=== PATIENT | female | born 1960 | race Caucasian/White ===

== ENCOUNTER 2019-08-25 09:16 | Emergency (ER) | payer MEDICAID ==
[~2019-08-25] VITALS: Ht 165.1 cm; Wt 136.1 kg
[~2019-08-25 09:16] MED LIST: LEVO0.2T5 PO; LISI10TA11 PO; ORE25 PO; QUET100T PO; SYNTHROID
--- NOTE | 2019-08-25 09:20 | NUR ---
Patient ambulated to bed 11. RN evaluating patient at bedside.
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
[2019-08-25 09:25] VITALS: BP 165/96
[2019-08-25 09:46] VITALS: BP 165/96
--- NOTE | 2019-08-25 09:46 | NUR ---
Patient discharged. Written and verbal after care instructions given and explained REGARDING DEPRESSION. Patient alert, oriented and verbalized understanding of instructions. Ambulatory with steady gait. All questions addressed prior to discharge. ID band removed. Patient advised to follow up with PMD. Rx of SEROQUEL, LEVOTHYROXINE, LISINOPRIL, AND NAPROSYN given. Patient educated on indication of medication including possible reaction and side effects. Opportunity to ask questions provided and answered. PT INSTRUCTED TOT YASMIN NAPROSYN WITH A MEAL AND TO TAKE LEVOTHYROXINE IN THE MORNING BEFORE A MEAL. PT GIVEN MENTAL HEALTH RESOURCE PACKET
== END 2019-08-25 09:46 | disposition home or self-care (01) ==
LOC: MED 09:16
DX: F32.9 Major depressive disorder, single episode, unspecified (principal); E03.9 Hypothyroidism, unspecified; I10 Essential (primary) hypertension; M19.90 Unspecified osteoarthritis, unspecified site; J44.9 Chronic obstructive pulmonary disease, unspecified; F17.210 Nicotine dependence, cigarettes, uncomplicated; Z71.6 Tobacco abuse counseling; Z98.890 Other specified postprocedural states; Z79.899 Other long term (current) drug therapy; Z88.0 Allergy status to penicillin

== ENCOUNTER 2019-10-30 11:16 | Observation (INO) | payer MEDICAID, OTHER ==
[~2019-10-30] VITALS: Ht 165.1 cm; Wt 136.1 kg
[2019-10-30 11:24] VITALS: BP 157/94
--- NOTE | 2019-10-30 11:24 | NUR ---
Patient ambulated to bed 10. RN evaluating patient at bedside.
[2019-10-30] MEDS ORDERED: ALBUTEROL SULFATE/IPRATROPIU 3 ML SOL IH ONE ×2 (11:30→13:10)
--- NOTE | 2019-10-30 11:30 | NUR ---
Breathing treatment administered by respiratory therapist at bedside.
--- NOTE | 2019-10-30 11:30 | NUR ---
59 Y/O FEMALE C/O SOB AND COUGH X 3 DAYS. STATES NONPRODUCTIVE, MOIST COUGH. STATES 8/10 CHEST PAIN PROVOKED BY COUGH THAT RADIATES TO BACK. RR SHALLOW AND EVEN. EXPIRATORY WHEEZES HEARD AT BILATERAL BASES. PT PLACED ON MONITOR, SITTING UPRIGHT FOR COMFORT. VSS MEDHX: DM, HTN, HYPOTHYROIDISM ALLERGIES: PENICILLIN
--- NOTE | 2019-10-30 11:33 | NUR ---
Dr. Pablo is evaluating the patient at bedside.
--- NOTE | 2019-10-30 11:34 | NUR ---
HHN THERAPY AND RESPIRATORY DRUG GIVEN ORDERED ENCOURAGED PATIENT FOR INTERMITTENT DEEP BREATHING DURING THERAPY
--- NOTE | 2019-10-30 11:49 | NUR ---
Dr. Pablo is evaluating the patient at bedside.
--- NOTE | 2019-10-30 11:57 | NUR ---
LAB AT BEDSIDE.
--- NOTE | 2019-10-30 12:04 | NUR ---
PT PLACED ON 2L NC. O2 SAT 88%RA. 93% ON 2L
[2019-10-30 12:37] LABS: BASOPHILS # (AUTO) 0.1 K/uL (0.00-0.22); BASOPHILS % (AUTO) 1.2 % (0.0-2.0); EOSINOPHILS # (AUTO) 0.1 K/uL (0-0.4); EOSINOPHILS % (AUTO) 1.6 % (0.0-4.0); HEMOGLOBIN 14.5 g/dL (12.0-16.0); LYMPHOCYTES # (AUTO) 2.3 K/uL (2.5-16.5); LYMPHOCYTES % (AUTO) 29.3 % (20.5-51.1); MEAN CORPUSCULAR HEMOGLOBIN 29 pg (27-31); MEAN CORPUSCULAR HGB CONC 33 g/dL (33-37); MEAN CORPUSCULAR VOLUME 87.3 fL (80-94); MONOCYTES # (AUTO) 0.8 K/uL (0.8-1.0); MONOCYTES % (AUTO) 10.7 % (1.7-9.3); NEUTROPHILS # (AUTO) 4.4 K/uL (1.8-7.7); NEUTROPHILS % (AUTO) 57.2 % (42.2-75.2); PLATELET COUNT (AUTO) 220 K/uL (140-450); RED BLOOD CELL COUNT(AUTO) 5.04 MIL/uL (4.20-5.40); RED CELL DISTRIBUTION WIDTH 14.6 % (11.6-13.7); WHITE BLOOD COUNT (AUTO) 7.7 K/uL (4.8-10.8)
--- NOTE | 2019-10-30 12:46 | NUR ---
PT SITTING UPRIGHT CALM AND PLEASANT. STATES EASIER WORK OF BREATHING WITH OXYGEN. WILL CONTINUE TO MONITOR
--- NOTE | 2019-10-30 13:17 | NUR ---
FOLLOW UP HHN THERAPY AND RESPIRATORY DRUG GIVEN NEEDED ENCOURAGED PATIENT FOR INTERMITTENT DEEP BREATHING DURING THERAPY
--- NOTE | 2019-10-30 13:17 | NUR ---
Secondary breathing treatment administered by respiratory therapist at bedside.
[2019-10-30 13:31] LABS: ALBUMIN 3.2 g/dL (3.4-5.0); ANION GAP 11.2 (8-16); CARBON DIOXIDE 27.8 mmol/L (21-32); CREATININE 0.7 mg/dL (0.6-1.3); TOTAL BILIRUBIN 0.4 mg/dL (0.0-1.0)
--- NOTE | 2019-10-30 14:06 | NUR ---
PT STATES OKAY TO DISCLOSE PHI WITH HER SON GERSON OVER THE PHONE
--- NOTE | 2019-10-30 14:38 | NUR ---
INFLUENZA SWAB WALKED TO LAB BY ANA STEEL
[2019-10-30] MEDS ORDERED: AZITHROMYCIN 500 MG in DEXTROSE 5% 250 ML IV ONE (15:15)
[2019-10-30] MEDS ORDERED: methylPREDNISolone SS 125 MG/2 ML VIAL IVP ONE (15:15)
[2019-10-30 15:19] LABS: RSV NEGATIVE (NEGATIVE)
[2019-10-30] MEDS ORDERED: AZITHROMYCIN 500 MG INJ VIAL IV ONE (15:19)
--- NOTE | 2019-10-30 15:24 | NUR ---
1524- NOTIFIED ADMIT STAFF FOR ADMISION OF PT. INSURANCE- [facility]
[2019-10-30] MEDS ORDERED: LURA40TA PO (15:27)
[2019-10-30] MEDS ORDERED: LORA-476 PO (15:27)
[2019-10-30] MEDS ORDERED: DIAZ2TAB6 PO (15:27)
[2019-10-30] MEDS ORDERED: SERT25TA PO (15:27)
[2019-10-30 16:20] VITALS: BP 148/76
--- NOTE | 2019-10-30 16:20 | NUR ---
RECEIVED PATIENT FROM ED NURSE MORIS VIA CHANCE. AAOX4. RESPIRATIONS EVEN AND LABORED, RESP 26. PATIENT IS DIAGNOSED WITH COPD. PATIENT HAS INTERMITTENT NON-PRODUCTIVE COUGH. NO FEVER. NO PAIN. ON ROOM AIR. PER ED NURSE, KEEP PATIENT ON ROOM AIR TO SEE HOW WELL PATIENT IS TOLERATING IT. SKIN WARM, DRY, AND INTACT. IV IN THE RIGHT AC G20 RUNNING AZITHROMYCIN AT 150 ML/HR. ABDOMEN ROUND AND NON-TENDER. LAST BM WAS 10/26/2019. LAST MENSTRUAL PERIOD WAS 5 YEARS AGO. PATIENT AMBULATED TO THE ROOM. BED IN LOW POSITION. CALL LIGHT IS WITHIN REACH. WILL CONTINUE TO MONITOR.
--- NOTE | 2019-10-30 16:25 | NUR ---
SWAB FOR MRSA NARES COLLECTED. VITAL SIGNS TAKEN. BP IS 148/76, HR IS 78, O2SAT IS 90% ROOM AIR. TEMP IS 97.8. RESPIRATIONS IS 26, LABORED.
--- NOTE | 2019-10-30 16:36 | NUR ---
Patient will be admitted to care of DR MYLES. Admited to MED SURG. Will go to [id number]. Belongings list completed. Report to ANA COOPER.
[2019-10-30] MEDS: NACL 0.9% 1,000 ML IV SCH (16:53)
--- NOTE | 2019-10-30 16:54 | NUR ---
HANG NS AT 50 ML/HR. AZITHROMYCIN IS RUNNING AT 150 ML/HR PER ED NURSE Addendum: 10/30/19 at 1831 by Princess Shaina Osborn RN NS AT 70 ML/HR
--- NOTE | 2019-10-30 17:19 | NUR ---
PATIENT IS SATURATING 90% ROOM AIR AT THIS TIME. NO SIGNS OF DISTRESS NOTED. NO PAIN. NO CHEST PAIN.
--- NOTE | 2019-10-30 17:41 | NUR ---
PATIENT IS AWAKE, LAYING IN BED. NO SIGNS OF DISTRESS. NO SOB. NO CHEST PAIN OR ANY DISCOMFORT. BED IN LOW POSITION. CALL LIGHT IS WITHIN REACH. WILL CONTINUE TO MONITOR
--- NOTE | 2019-10-30 17:54 | NUR ---
PATIENT IS ON 2L O2 VIA NC. O2SAT IS 94%.
[2019-10-30] MEDS: ACETAMINOPHEN 325 MG TAB PO PRN (18:01)
--- NOTE | 2019-10-30 18:01 | NUR ---
GIVEN TYLENOL FOR MILD PAIN. EXPLAINED TO PATIENT MED. PATIENT VERBALIZED UNDERSTANDING. BED IN LOW POSITION. CALL LIGHT IS WITHIN REACH. WILL CONTINUE TO MONITOR
--- NOTE | 2019-10-30 19:14 | NUR ---
ENDORSED PATIENT TO BAND TEACHER NURSE FOR CONTINUITY OF CARE. NO SOB. DENIES ANY OTHER DISCOMFORT. PATIENT IS IN STABLE CONDITION
--- NOTE | 2019-10-30 19:32 | NUR ---
RECEIVED REPORT FORM ALLISON RN DAYSHIFT NURSE AT BEDSIDE FOR CONTINUITY OF CARE, PT IN STABLE CONDITION.
[2019-10-30 20:00] VITALS: BP 159/80
--- NOTE | 2019-10-30 20:00 | NUR ---
PT IN BED AOX 3-4, WITH SKIN INTACT. IV SITE INTACT RAC 22G RUNNING NORMAL SALINE AT 70MLS/HR. PT HAS 2 LITER S VIA N/C. RESPIRATIONS SOMEWHAT LABORED AND SHE IS NOTED TO HAVE A DRY NON PRODUCTIVE INTERMITTED COUGH. V/S FOLLOWS: T 97.0 P 77 R 20 B/P 159/80 O2 93% WITH 2 LITERS VIA N/C. ALL UNIVERSAL FALLS PRECAUTIONS IN PLACE.
[2019-10-30] MEDS: methylPREDNISolone SS 125 MG/2 ML VIAL IVP SCH (20:32)
[2019-10-30] MEDS: ONDANSETRON 4 MG/2 ML VIAL IVP PRN (20:47)
--- NOTE | 2019-10-30 20:47 | NUR ---
PT GIVEN ORDERED ZOFRAN FOR C/O OF NAUSEA FROM COUGHING A LOT.
--- NOTE | 2019-10-30 21:00 | NUR ---
PT GIVEN ORDERED SOLUMEDROL; EDUCATION REGARDING MEDICATION PURPOSE AND SIDE EFFECTS EXPLAINED AT BEDSIDE. PT WAS ASKING ABOUT IF SHE IS ABLE TO CONTINUE WITH HER HOME MEDICATIONS. PT FINGERSTICK IS 246. WILL CALL DYEING MACHINE FEEDER MD TO RECONCILE HOME MEDS.
[2019-10-30] MEDS ORDERED: DEXTROSE 50% 50 ML SYR IVP PRN (21:10)
--- NOTE | 2019-10-30 21:30 | NUR ---
HOME MEDS RECONCILED WITH SERVICE TECHNICIAN MD STANTON. HE DIDN'T WANT TO CONTINUE PT ON METFORMIN, HOWEVER HE DID ORDERED PROTOCOL F/S AND INSULIN S/S. PT WAS GIVEN 4 UNITS OF HUMALOG COVERAGE. MD STANTON ALSO SAID OK TO REQUESTED PSYCH MEDS OF SEROQUEL, ZOLOFT, ATIVAN AND LATUDA ORDERED FOR HOME MEDS. DID NOT WANT TO CONTINUE WITH HYDROCHLOROTHIAZIDE AT THIS TIME.
[2019-10-30] MEDS: INSULIN LISPRO SLIDING SCALE 100 UNITS/ML VIAL SUBQ PRN (22:10)
--- NOTE | 2019-10-30 22:30 | NUR ---
PT WAS NOTED COUGHING AND RT WAS CALLED FOR PRN NEB TREATMENT. CALLED CONCRETE POLISHER MD STANTON FOR REQUEST OF SLEEPING PILL. HE SAID YES AMBIEN 5MG. DECLINED TO GIVEN PRN COUGH MEDICATION.
[2019-10-30] MEDS ORDERED: ZOLPIDEM 5 MG TAB PO PRN (23:35)
[2019-10-31] VITALS: BP 125/90
--- NOTE | 2019-10-31 | NUR ---
IV SITE ON RIGHT AC WAS NOTED TO BE OUT. NEW IV PROVIDED ON RIGHT HAND 22 GUAGE.
[2019-10-31] MEDS: ALBUTEROL 0.083% 2.5 MG/3 ML NEBU INH PRN ×3 (00:05→13:18)
[2019-10-31] MEDS: IPRATROPIUM 0.02% 0.5 MG/2.5 ML NEBU INH PRN ×2 (00:05→05:22)
--- NOTE | 2019-10-31 01:05 | NUR ---
PT GIVEN PO/PRN AMBIEN TO HELP WITH SLEEP. V/S FOLLOWS: T 97.6 P 91 R 20 B/P 125/90 02 93% WITH 2 LITERS VIA N/C. ALL UNIVERSAL FALLS PRECAUTIONS IN PLACE.
[2019-10-31] MEDS: methylPREDNISolone SS 125 MG/2 ML VIAL IVP SCH ×2 (04:55→13:04)
--- NOTE | 2019-10-31 05:00 | NUR ---
PRN NEB TREATMENT PROVIDED AT BEDSIDE.
[2019-10-31] MEDS: ONDANSETRON 4 MG/2 ML VIAL IVP PRN ×2 (05:06→11:59)
[2019-10-31] MEDS: ACETAMINOPHEN 325 MG TAB PO PRN ×2 (05:09→08:49)
--- NOTE | 2019-10-31 05:30 | NUR ---
IV SITE ON R HAND 22G WAS PULLED OUT. NEW IV SITE PROVIDED 24G ON LEFT HAND PT GIVEN ORDERED SOLUMEDROL.
[2019-10-31] MEDS: BLOOD GLUCOSE MONITORING 1 DEV DEV FS SCH ×2 (06:07→11:57)
[2019-10-31] MEDS: INSULIN LISPRO SLIDING SCALE 100 UNITS/ML VIAL SUBQ PRN ×2 (06:10→11:58)
[2019-10-31] MEDS: NACL 0.9% 1,000 ML IV SCH (06:13)
[2019-10-31 06:18] LABS: BASOPHILS % (AUTO) 0.4 % (0.0-2.0); EOSINOPHILS # (AUTO) 0.1 K/uL (0-0.4); EOSINOPHILS % (AUTO) 0.8 % (0.0-4.0); HEMATOCRIT 42.7 % (36-48); HEMOGLOBIN 14.5 g/dL (12.0-16.0); LYMPHOCYTES # (AUTO) 1.1 K/uL (2.5-16.5); LYMPHOCYTES % (AUTO) 10.5 % (20.5-51.1); MEAN CORPUSCULAR HEMOGLOBIN 30 pg (27-31); MEAN CORPUSCULAR HGB CONC 34 g/dL (33-37); MEAN CORPUSCULAR VOLUME 87.3 fL (80-94); MONOCYTES # (AUTO) 0.2 K/uL (0.8-1.0); MONOCYTES % (AUTO) 2.3 % (1.7-9.3); NEUTROPHILS # (AUTO) 9.2 K/uL (1.8-7.7); PLATELET COUNT (AUTO) 225 K/uL (140-450); RED BLOOD CELL COUNT(AUTO) 4.89 MIL/uL (4.20-5.40); RED CELL DISTRIBUTION WIDTH 14.5 % (11.6-13.7); WHITE BLOOD COUNT (AUTO) 10.6 K/uL (4.8-10.8)
[2019-10-31 06:37] LABS: CARBON DIOXIDE 27.3 mmol/L (21-32); CREATININE 0.7 mg/dL (0.6-1.3); POTASSIUM 4.3 mmol/L (3.5-5.1)
--- NOTE | 2019-10-31 06:45 | NUR ---
SPEEDY FROM THE PHARMACY CALLED REGARDING LATUDA, [facility] DOESN'T HAVE LATUDA OM HAND. WILL ENDORSE TO NEXT SHIFT TO ASK FAMILY TO BRING IN FOR HER.
--- NOTE | 2019-10-31 07:20 | NUR ---
RECEIVED BEDSIDE REPORT FROM NIGHTSHIFT NURSE. PT RESTING IN BED UPON ARRIVAL. ABLE TO MAKE NEEDS KNOWN. RESPIRATIONS EVEN AND UNLABORED WITH NO SOB OR RESPIRATORY DISTRESS. SKIN WARM AND DRY TO TOUCH. IV SITE IN LEFT HAND 24G IS CLEAN, DRY, AND INTACT. SAFETY MEASURES IN PLACE. WILL CONTINUE TO MONITOR.
[2019-10-31 08:00] VITALS: BP 160/74
--- NOTE | 2019-10-31 08:37 | NUR ---
PATIENT HAS BEEN SCREENED AND CATEGORIZED MODERATE NUTRITION RISK. PATIENT WILL BE SEEN WITHIN 3-5 DAYS OF ADMISSION. 11/02/19 11/04/[address]
--- NOTE | 2019-10-31 08:58 | NUR ---
ADMINISTERED SCHED MED PRESCRIBED PER MD ORDER. PT TOLERATED WELL. MEDICATION EDUCATION PERFORMED. PT VERBALIZED UNDERSTANDING. SAFETY MEASURES IN PLACE. WILL CONTINUE TO MONITOR
[2019-10-31] MEDS ORDERED: ENOXAPARIN 40 MG/0.4 ML SYR SUBQ SCH (09:00)
[2019-10-31] MEDS ORDERED: COMMUNICATION ORDER MC SCH (09:00)
--- NOTE | 2019-10-31 10:01 | NUR ---
PT CALLED AND SAID IV SITE IS LEAKING. PT DISLODGED INTACT IV SITE. PT STATED THAT SHE DID NOT MEAN TO AND THAT IT GOT CAUGHT ON SOMETHING AND GOT PULLED OUT. WILL PLACE NEW IV. SAFETY MEASURES IN PLACE. WILL CONTINUE TO MONITOR
--- NOTE | 2019-10-31 10:15 | NUR ---
NEW IV SITE INSERTED IN RIGHT FA 22G IS CLEAN, DRY, AND INTACT. SAFETY MEASURES IN PLACE. WILL CONTINUE TO MONITOR.
--- NOTE | 2019-10-31 12:11 | NUR ---
PT BLOOD SUGAR IS 370. ADMINISTERED SCHED MED PRESCRIBED PER MD ORDER. PT TOLERATED WELL. MEDICATION EDUCATION PERFORMED. PT VERBALIZED UNDERSTANDING. SAFETY MEASURES IN PLACE. WILL CONTINUE TO MONITOR
--- NOTE | 2019-10-31 13:09 | NUR ---
ADMINISTERED SCHED MED PRESCRIBED PER MD ORDER. PT TOLERATED WELL. MEDICATION EDUCATION PERFORMED. PT VERBALIZED UNDERSTANDING. SAFETY MEASURES IN PLACE. WILL CONTINUE TO MONITOR
--- NOTE | 2019-10-31 13:56 | NUR ---
Supervisor D[employer]itation Note: Basic Screen: Yes High Risk DC Screen [place]: ASYE WORLEY Home Relationship: CHILD Pre-Admission Living Arrangements: Lives with Other Prior ADL Independent Current Home Health Name/Tel: N/A Current DME/02 Name/Tel: N/A Current Hospice Name/Tel: N/A Current Dialysis Name/Tel: N/A Healthcare Decision Maker: Patient Advance Directive No Physician Orders for Life Sustaining Treatment Form No Patient/Family Have Educational Needs No Information Taught: Advance Directive Community Resources Person Taught: Patient Teaching Tools: Verbal Factors Affecting Learning: None Participation Level: Refused Evaluation: Verbalizes Understanding Needs Additional Education: No Discipline: Case Mgt/Social Svcs Tentative Discharge Plan/Destination: DME Will require assistance post discharge: No Referred to Life Coach: No Tentative Discharge Plan Summary: Patient is a 59-year-old female who was admitted for COPD exacerbation. Patient has PMHX of COPD diabetes, hypertension, and thyroid disease. Patient was admitted from home where she lives with her two sons. SW met with patient at bedside. Patient stated that her emergency contact for her son Ayse Worley was incorrect. Patient provided correct phone number: [phone]. Patient stated that she has a history of mental health disorders including Bipolar Disorder, Manic Depressive Disorder, and Severe Anxiety Disorder. Patient reports no history of substance abuse. SW offered mental health resources to patient, but patient stated she is already arranging her mental heatlh services and refused. Patient's tentative discharge plan is to return home. No further needs identified. Signature: YULISA Anderson Date: Oct 31, 2019 Time: 13:56
[2019-10-31] MEDS ORDERED: AZIT250T11 PO (14:14)
[2019-10-31] MEDS ORDERED: PRED20TA5 PO (14:15)
--- NOTE | 2019-10-31 14:30 | NUR ---
PT IS AWARE OF DISCHARGE AND WOULD LIKE TO LEAVE AROUND 1530. SON MAIA WAS CALLED AND SAID HE WOULD BE HERE SHORTLY. SAFETY MEASURES IN PLACE. WILL CONTINUE TO MONITOR.
[2019-10-31 14:50] VITALS: BP 160/74
--- NOTE | 2019-10-31 15:25 | NUR ---
WENT OVER DC INSTRUCTIONS WITH PT. PT SIGNED APPROPRIATE DOCUMENTS. INSTRUCTED PT TO VISIT ED FOR ANY SIGNS OF DISTRESS. PT VERBALIZED UNDERSTANDING. INTACT IV CANNULA AND ID BANDS, AND ALLERGY BAND REMOVED. PT CHANGED INTO OWN CLOTHING AND GATHERED THEIR BELONGINGS. PT REFUSED FLU VACCINE AND DID NOT QUALIFY FOR PNA VACCINE. PT WHEELED TO PRIVATE VEHICLE TO RETURN HOME. PT IS STABLE.
[2019-10-31] MEDS ORDERED: AZITHROMYCIN 500 MG in DEXTROSE 5% 250 ML IV SCH (16:00)
[2019-10-31] MEDS ORDERED: QUEtiapine FUMARATE 100 MG TAB PO SCH (21:00)
[2019-10-31] MEDS ORDERED: LORazepam 1 MG TAB PO SCH (21:00)
[2019-10-31] MEDS ORDERED: SERTRALINE 50 MG TAB PO SCH (21:00)
== END 2019-10-31 15:25 | disposition home or self-care (01) ==
LOC: MED 11:16 → MTU 15:55 → INTOOBSV 15:55
PROVIDERS: ADMIT Hospitalist; ATTEND Hospitalist
DX: J44.1 Chronic obstructive pulmonary disease with (acute) exacerbation (principal); E11.9 Type 2 diabetes mellitus without complications; I10 Essential (primary) hypertension; E03.9 Hypothyroidism, unspecified; F32.9 Major depressive disorder, single episode, unspecified; F41.9 Anxiety disorder, unspecified; E66.9 Obesity, unspecified; F17.210 Nicotine dependence, cigarettes, uncomplicated; Z79.899 Other long term (current) drug therapy; Z88.0 Allergy status to penicillin; Z68.42 Body mass index [BMI] 45.0-49.9, adult
CPT/HCPCS: 36415; 71045; 80048; 80053; 82948; 83605; 84484; 85025; 87040; 87081; 87420; 87804; 94640; 94760; 96365; 96372; 96375; 96376; 99285; G0378; J0456; J1650; J2405; J2930; J7030; J7613; J7620; J7644; Q0092; J7060

== ENCOUNTER 2019-12-03 16:14 | Emergency (ER) | payer OTHER ==
[~2019-12-03] VITALS: Ht 165.1 cm; Wt 127.0 kg
[~2019-12-03 16:14] MED LIST changes: +AZIT250T11 PO; +DIAZ2TAB6 PO; +LORA-476 PO; +LURA40TA PO; +PRED20TA5 PO; +SERT25TA PO
--- NOTE | 2019-12-03 16:23 | NUR ---
PATIENT AMBULATED TO BED 6
[2019-12-03 16:26] VITALS: BP 111/59
--- NOTE | 2019-12-03 16:31 | NUR ---
59 Y/O FEMALE C/O SOB, DIZZINESS, AND LT LEG PAIN X 3-4 DAYS INCREASING TODAY. STATES MOIST, NON PRODUCTIVE COUGH WITH AUDIBLE WHEEZING. DEEP, LABORED RESPIRATIONS, NO ACCESSORY MUSCLE USE/TRIPODING. PT ALSO STATES SHE HAS LT LEG PAIN S/P TWISTING LEG WHEN GETTING OFF THE COUCH TODAY. PER PT SHE FELT DIZZY AND FELL, DENIES LOC. POSITIONED FOR COMFORT IN BED AND PLACED ON THE MONITOR. VSS MEDHX: COPD, DM, HTN ALLERGIES: PCN
[2019-12-03] MEDS ORDERED: NACL 0.9% 1,000 ML IV SCH (16:52)
[2019-12-03] MEDS ORDERED: KETOROLAC 30 MG/ML VIAL IVP ONE (16:55)
[2019-12-03] MEDS ORDERED: ALBUTEROL 0.083% 2.5 MG/3 ML NEBU INH ONE (16:55)
[2019-12-03] MEDS ORDERED: methylPREDNISolone SS 125 MG/2 ML VIAL IVP ONE (16:55)
[2019-12-03] MEDS ORDERED: IPRATROPIUM 0.02% 0.5 MG/2.5 ML NEBU INH ONE (16:55)
[2019-12-03] MEDS ORDERED: LEVOFLOXACIN 500 MG/D5W PREMIX 100 ML IV ONE (16:55)
[2019-12-03 17:30] LABS: BASOPHILS # (AUTO) 0.1 K/uL (0.00-0.22); BASOPHILS % (AUTO) 0.9 % (0.0-2.0); EOSINOPHILS # (AUTO) 0.1 K/uL (0-0.4); EOSINOPHILS % (AUTO) 1.4 % (0.0-4.0); HEMATOCRIT 42.6 % (36-48); LYMPHOCYTES # (AUTO) 2.9 K/uL (2.5-16.5); LYMPHOCYTES % (AUTO) 27.7 % (20.5-51.1); MEAN CORPUSCULAR HEMOGLOBIN 29 pg (27-31); MEAN CORPUSCULAR HGB CONC 33 g/dL (33-37); MEAN CORPUSCULAR VOLUME 86.6 fL (80-94); MONOCYTES # (AUTO) 0.9 K/uL (0.8-1.0); MONOCYTES % (AUTO) 8.5 % (1.7-9.3); NEUTROPHILS # (AUTO) 6.4 K/uL (1.8-7.7); NEUTROPHILS % (AUTO) 61.5 % (42.2-75.2); PLATELET COUNT (AUTO) 235 K/uL (140-450); RED BLOOD CELL COUNT(AUTO) 4.92 MIL/uL (4.20-5.40); RED CELL DISTRIBUTION WIDTH 15.3 % (11.6-13.7); WHITE BLOOD COUNT (AUTO) 10.4 K/uL (4.8-10.8)
--- NOTE | 2019-12-03 17:35 | NUR ---
XRAY AT BEDSIDE
--- NOTE | 2019-12-03 17:49 | NUR ---
PT AMBULATED TO RESTROOM
[2019-12-03 17:50] LABS: ALBUMIN 3.4 g/dL (3.4-5.0); CARBON DIOXIDE 34.9 mmol/L (21-32); CREATININE 1.2 mg/dL (0.6-1.3); POTASSIUM 3.9 mmol/L (3.5-5.1); TOTAL BILIRUBIN 0.3 mg/dL (0.0-1.0)
--- NOTE | 2019-12-03 17:52 | NUR ---
URINE COLLECTED, LAB MADE AWARE.
--- NOTE | 2019-12-03 17:59 | NUR ---
PT SITTING UPRIGHT ON CHAIR, RR EVEN AND UNLABORED. NO C/O PAIN. WILL CONTINUE TO MONITOR
--- NOTE | 2019-12-03 18:21 | NUR ---
PT DENIES PAIN AT THIS TIME. 10/03. LAYING IN BED CALM AND PLEASANT. WILL CONTINUE TO MONITOR
[2019-12-03 18:57] LABS: APPEARANCE,URINE SL CLOUDY (CLEAR); BILIRUBIN,URINE NEGATIVE (NEGATIVE); BLOOD, URINE NEGATIVE (NEGATIVE); COLOR,URINE YELLOW (YELLOW); LEUKOCYTE ESTERASE ,URINE NEGATIVE (NEGATIVE); NITRITE, URINE NEGATIVE (NEGATIVE); PH,URINE 8.5 (5.0-9.0); UGLUCOSE NEGATIVE (NEGATIVE)
[2019-12-03 19:16] VITALS: BP 111/59
--- NOTE | 2019-12-03 19:16 | NUR ---
Patient discharged with v/s stable. Written and verbal after care instructions given and explained. Patient alert, oriented and verbalized understanding of instructions. Ambulatory with steady gait. All questions addressed prior to discharge. ID band removed. Patient advised to follow up with PMD. Rx of PREDNISONE, LEVAQUIN, ALBUTEROL, AND AEROCHAMBER given. Patient educated on indication of medication including possible reaction and side effects. Opportunity to ask questions provided and answered.
== END 2019-12-03 19:10 | disposition home or self-care (01) ==
LOC: MED 16:14
DX: S86.812A Strain of other muscle(s) and tendon(s) at lower leg level, left leg, initial encounter (principal); J44.9 Chronic obstructive pulmonary disease, unspecified; B34.9 Viral infection, unspecified; N12 Tubulo-interstitial nephritis, not specified as acute or chronic; F17.200 Nicotine dependence, unspecified, uncomplicated; E11.9 Type 2 diabetes mellitus without complications; I10 Essential (primary) hypertension; E07.89 Other specified disorders of thyroid; Z98.890 Other specified postprocedural states; Z88.0 Allergy status to penicillin; Z79.899 Other long term (current) drug therapy; W01.0XXA Fall on same level from slipping, tripping and stumbling without subsequent striking against object, initial encounter; Y93.89 Activity, other specified; Y92.89 Other specified places as the place of occurrence of the external cause; Y99.8 Other external cause status
CPT/HCPCS: 36415; 71045; 73590; 80053; 81003; 83605; 84484; 85025; 87040; 87086; 93005; 94640; 96365; 96375; 99285; J1885; J1956; J2930; J7030; J7613; J7644; Q0092

== ENCOUNTER 2019-12-05 10:58 | Inpatient (IN) | payer OTHER ==
[~2019-12-05] VITALS: Ht 165.1 cm; Wt 127.5 kg
[2019-12-05 11:20] VITALS: BP 122/85
[2019-12-05] MEDS ORDERED: NACL 0.9% 500 ML IV SCH (12:29)
[2019-12-05] MEDS ORDERED: MAG SULF 2000 MG/WATER PREMIX 50 ML IV ONE (12:30)
[2019-12-05] MEDS ORDERED: ALBUTEROL SULFATE/IPRATROPIU 3 ML SOL IH ONE ×3 (12:30→15:40)
[2019-12-05] MEDS ORDERED: methylPREDNISolone SS 125 MG/2 ML VIAL IVP ONE (12:30)
[2019-12-05] MEDS ORDERED: KETOROLAC 30 MG/ML VIAL IVP ONE (13:20)
[2019-12-05 13:37] LABS: BASOPHILS # (AUTO) 0.1 K/uL (0.00-0.22); BASOPHILS % (AUTO) 0.5 % (0.0-2.0); EOSINOPHILS % (AUTO) 0.3 % (0.0-4.0); HEMATOCRIT 42.9 % (36-48); HEMOGLOBIN 13.9 g/dL (12.0-16.0); LYMPHOCYTES # (AUTO) 1.4 K/uL (2.5-16.5); LYMPHOCYTES % (AUTO) 11.3 % (20.5-51.1); MEAN CORPUSCULAR HEMOGLOBIN 28 pg (27-31); MEAN CORPUSCULAR HGB CONC 32 g/dL (33-37); MEAN CORPUSCULAR VOLUME 86.7 fL (80-94); MONOCYTES # (AUTO) 0.6 K/uL (0.8-1.0); MONOCYTES % (AUTO) 4.7 % (1.7-9.3); NEUTROPHILS # (AUTO) 10.1 K/uL (1.8-7.7); NEUTROPHILS % (AUTO) 83.2 % (42.2-75.2); PLATELET COUNT (AUTO) 245 K/uL (140-450); RED BLOOD CELL COUNT(AUTO) 4.95 MIL/uL (4.20-5.40); RED CELL DISTRIBUTION WIDTH 15.6 % (11.6-13.7); WHITE BLOOD COUNT (AUTO) 12.1 K/uL (4.8-10.8)
[2019-12-05 14:29] LABS: ALBUMIN 3.6 g/dL (3.4-5.0); ANION GAP 10.8 (8-16); CARBON DIOXIDE 30.8 mmol/L (21-32); CREATININE 0.9 mg/dL (0.6-1.3); POTASSIUM 4.6 mmol/L (3.5-5.1); PROTHROMBIN TIME 9.3 secs (10.8-13.4); TOTAL BILIRUBIN 0.5 mg/dL (0.0-1.0)
[2019-12-05] MEDS ORDERED: ACETAMINOPHEN 325 MG TAB PO PRN (15:40)
[2019-12-05] MEDS ORDERED: DEXTROSE 50% 50 ML SYR IVP PRN (15:40)
[2019-12-05 16:15] VITALS: BP 142/71
[2019-12-05] MEDS: BLOOD GLUCOSE MONITORING 1 DEV DEV FS SCH ×2 (16:30→20:34)
[2019-12-05] MEDS: HYDROcodone/APAP 5/325 MG 1 TAB TAB PO PRN (17:08)
[2019-12-05] MEDS: LEVOFLOXACIN 750 MG/D5W PREMIX 150 ML IV SCH (17:10)
[2019-12-05] MEDS: INSULIN LISPRO SLIDING SCALE 100 UNITS/ML VIAL SUBQ PRN ×2 (17:27→21:08)
[2019-12-05] MEDS ORDERED: FUROSEMIDE 20 MG/2 ML VIAL IVP SCH (18:00)
[2019-12-05] MEDS: ALBUTEROL SULFATE/IPRATROPIU 3 ML SOL IH SCH (19:26)
[2019-12-05 20:00] VITALS: BP 135/77
[2019-12-05] MEDS: ONDANSETRON 4 MG/2 ML VIAL IVP PRN (20:18)
[2019-12-05] MEDS: methylPREDNISolone SS 125 MG/2 ML VIAL IVP SCH (20:29)
[2019-12-05] MEDS: ZOLPIDEM 10 MG TAB PO SCH (21:16)
[2019-12-06] VITALS: BP 133/64
[2019-12-06] MEDS: ALBUTEROL SULFATE/IPRATROPIU 3 ML SOL IH SCH ×5 (01:04→23:02)
[2019-12-06] MEDS: HYDROcodone/APAP 5/325 MG 1 TAB TAB PO PRN ×5 (01:17→23:41)
[2019-12-06 04:00] VITALS: BP 142/74
[2019-12-06] MEDS: methylPREDNISolone SS 125 MG/2 ML VIAL IVP SCH (04:41)
[2019-12-06 06:20] LABS: BASOPHILS # (AUTO) 0.1 K/uL (0.00-0.22); BASOPHILS % (AUTO) 0.4 % (0.0-2.0); HEMATOCRIT 41.4 % (36-48); HEMOGLOBIN 13.4 g/dL (12.0-16.0); LYMPHOCYTES # (AUTO) 1.1 K/uL (2.5-16.5); LYMPHOCYTES % (AUTO) 8.1 % (20.5-51.1); MEAN CORPUSCULAR HEMOGLOBIN 28 pg (27-31); MEAN CORPUSCULAR HGB CONC 32 g/dL (33-37); MONOCYTES # (AUTO) 0.5 K/uL (0.8-1.0); MONOCYTES % (AUTO) 3.4 % (1.7-9.3); NEUTROPHILS # (AUTO) 12.1 K/uL (1.8-7.7); NEUTROPHILS % (AUTO) 88.1 % (42.2-75.2); PLATELET COUNT (AUTO) 252 K/uL (140-450); RED BLOOD CELL COUNT(AUTO) 4.76 MIL/uL (4.20-5.40); RED CELL DISTRIBUTION WIDTH 15.3 % (11.6-13.7); WHITE BLOOD COUNT (AUTO) 13.7 K/uL (4.8-10.8)
[2019-12-06] MEDS: INSULIN LISPRO SLIDING SCALE 100 UNITS/ML VIAL SUBQ PRN ×4 (06:25→20:17)
[2019-12-06] MEDS: BLOOD GLUCOSE MONITORING 1 DEV DEV FS SCH ×4 (06:28→20:19)
[2019-12-06 06:46] LABS: ANION GAP 11.9 (8-16); CARBON DIOXIDE 28.6 mmol/L (21-32); CREATININE 0.9 mg/dL (0.6-1.3); POTASSIUM 4.5 mmol/L (3.5-5.1)
[2019-12-06 08:00] VITALS: BP 157/85
[2019-12-06] MEDS: ENOXAPARIN 40 MG/0.4 ML SYR SUBQ SCH (08:14)
[2019-12-06] MEDS: ONDANSETRON 4 MG/2 ML VIAL IVP PRN ×3 (08:16→23:33)
[2019-12-06] MEDS: ASPIRIN 81 MG TAB.CHEW PO SCH (08:16)
[2019-12-06] MEDS ORDERED: ALBUTEROL SULFATE/IPRATROPIU 3 ML SOL IH PRN ×2 (11:30)
[2019-12-06 12:00] VITALS: BP 125/70
[2019-12-06] MEDS: methylPREDNISolone SS 40 MG/ML VIAL IVP SCH ×3 (12:10→23:23)
[2019-12-06 16:00] VITALS: BP 138/81
[2019-12-06] MEDS: LEVOFLOXACIN 750 MG/D5W PREMIX 150 ML IV SCH (17:03)
[2019-12-06 20:00] VITALS: BP 119/71
[2019-12-06] MEDS: ZOLPIDEM 10 MG TAB PO SCH (20:07)
[2019-12-07 00:01] VITALS: BP 137/85
[2019-12-07] MEDS: ALBUTEROL SULFATE/IPRATROPIU 3 ML SOL IH SCH ×6 (03:00→23:28)
[2019-12-07 04:00] VITALS: BP 138/78
[2019-12-07] MEDS: HYDROcodone/APAP 5/325 MG 1 TAB TAB PO PRN ×4 (04:36→19:54)
[2019-12-07] MEDS: methylPREDNISolone SS 40 MG/ML VIAL IVP SCH ×2 (05:40→20:02)
[2019-12-07] MEDS: LEVOTHYROXINE 0.1 MG TAB PO SCH (05:46)
[2019-12-07 06:35] LABS: BASOPHILS % (AUTO) 0.2 % (0.0-2.0); HEMATOCRIT 41.8 % (36-48); HEMOGLOBIN 13.7 g/dL (12.0-16.0); LYMPHOCYTES # (AUTO) 1.1 K/uL (2.5-16.5); MEAN CORPUSCULAR HEMOGLOBIN 29 pg (27-31); MEAN CORPUSCULAR HGB CONC 33 g/dL (33-37); MEAN CORPUSCULAR VOLUME 87.1 fL (80-94); MONOCYTES # (AUTO) 0.7 K/uL (0.8-1.0); NEUTROPHILS # (AUTO) 12.5 K/uL (1.8-7.7); PLATELET COUNT (AUTO) 265 K/uL (140-450); RED BLOOD CELL COUNT(AUTO) 4.79 MIL/uL (4.20-5.40); RED CELL DISTRIBUTION WIDTH 14.8 % (11.6-13.7); WHITE BLOOD COUNT (AUTO) 14.4 K/uL (4.8-10.8)
[2019-12-07] MEDS: INSULIN LISPRO SLIDING SCALE 100 UNITS/ML VIAL SUBQ PRN ×4 (06:36→20:07)
[2019-12-07] MEDS: BLOOD GLUCOSE MONITORING 1 DEV DEV FS SCH ×4 (06:36→19:58)
[2019-12-07 07:04] LABS: LYMPHOCYTES % (AUTO) 7.8 % (20.5-51.1)
[2019-12-07 08:00] VITALS: BP 151/64
[2019-12-07 08:25] LABS: ANION GAP 12.1 (8-16); CARBON DIOXIDE 29.7 mmol/L (21-32); POTASSIUM 4.8 mmol/L (3.5-5.1)
[2019-12-07 08:27] LABS: CREATININE 0.9 mg/dL (0.6-1.3)
[2019-12-07] MEDS: ENOXAPARIN 40 MG/0.4 ML SYR SUBQ SCH (08:47)
[2019-12-07] MEDS: LISINOPRIL 10 MG TAB PO SCH (08:49)
[2019-12-07] MEDS ORDERED: CRUSHER, PILL MC ONE (08:49)
[2019-12-07] MEDS: HYDROCHLOROTHIAZIDE 25 MG TAB PO SCH (08:50)
[2019-12-07] MEDS: ASPIRIN 81 MG TAB.CHEW PO SCH (08:50)
[2019-12-07] MEDS: SERTRALINE 50 MG TAB PO SCH (08:50)
[2019-12-07] MEDS: ONDANSETRON 4 MG/2 ML VIAL IVP PRN ×3 (09:05→19:56)
[2019-12-07 12:00] VITALS: BP 116/50
[2019-12-07 16:00] VITALS: BP 119/65
[2019-12-07] MEDS: LEVOFLOXACIN 750 MG/D5W PREMIX 150 ML IV SCH (17:24)
[2019-12-07 20:00] VITALS: BP 114/61
[2019-12-07] MEDS: ZOLPIDEM 10 MG TAB PO SCH (20:01)
[2019-12-07] MEDS: MORPHINE SULFATE 2 MG/ML SYR IVP PRN (22:57)
[2019-12-08] VITALS: BP 121/84
[2019-12-08] MEDS: MORPHINE SULFATE 2 MG/ML SYR IVP PRN ×3 (03:52→15:16)
[2019-12-08] MEDS: ALBUTEROL SULFATE/IPRATROPIU 3 ML SOL IH SCH ×3 (03:53→11:12)
[2019-12-08 04:00] VITALS: BP 100/40
[2019-12-08] MEDS: ONDANSETRON 4 MG/2 ML VIAL IVP PRN ×2 (04:11→07:46)
[2019-12-08] MEDS: LEVOTHYROXINE 0.1 MG TAB PO SCH (05:49)
[2019-12-08] MEDS: BLOOD GLUCOSE MONITORING 1 DEV DEV FS SCH ×2 (06:49→11:30)
[2019-12-08] MEDS: INSULIN LISPRO SLIDING SCALE 100 UNITS/ML VIAL SUBQ PRN (06:51)
[2019-12-08 08:00] VITALS: BP 124/74
[2019-12-08] MEDS: ASPIRIN 81 MG TAB.CHEW PO SCH (08:51)
[2019-12-08] MEDS: SERTRALINE 50 MG TAB PO SCH (08:51)
[2019-12-08] MEDS: LISINOPRIL 10 MG TAB PO SCH (08:52)
[2019-12-08] MEDS: HYDROCHLOROTHIAZIDE 25 MG TAB PO SCH (08:52)
[2019-12-08] MEDS: methylPREDNISolone SS 40 MG/ML VIAL IVP SCH (08:52)
[2019-12-08] MEDS: ENOXAPARIN 40 MG/0.4 ML SYR SUBQ SCH (09:00)
[2019-12-08 12:00] VITALS: BP 124/65
[2019-12-08] MEDS ORDERED: PRED20TA5 PO (12:45)
[2019-12-08] MEDS ORDERED: INFLUENZA VACCINE QUAD 0.5 ML SYR IMVAC PRN (15:40)
[2019-12-08] MEDS ORDERED: ONDA4TAB PO (15:56)
== END 2019-12-08 16:30 | disposition home or self-care (01) | DRG 133 ==
LOC: MED 10:58 → MTU 16:04 → OBSVTOIN 12-07 19:05
PROVIDERS: ADMIT Hospitalist; ATTEND Hospitalist
DX: J96.21 Acute and chronic respiratory failure with hypoxia (principal); E11.22 Type 2 diabetes mellitus with diabetic chronic kidney disease; R65.10 Systemic inflammatory response syndrome (SIRS) of non-infectious origin without acute organ dysfunction; J44.1 Chronic obstructive pulmonary disease with (acute) exacerbation; E66.01 Morbid (severe) obesity due to excess calories; Z68.42 Body mass index [BMI] 45.0-49.9, adult; I12.9 Hypertensive chronic kidney disease with stage 1 through stage 4 chronic kidney disease, or unspecified chronic kidney disease; E03.9 Hypothyroidism, unspecified; E78.5 Hyperlipidemia, unspecified; G47.33 Obstructive sleep apnea (adult) (pediatric); N18.1 Chronic kidney disease, stage 1; F17.210 Nicotine dependence, cigarettes, uncomplicated; Z88.0 Allergy status to penicillin; Z23 Encounter for immunization; Z98.891 History of uterine scar from previous surgery
CPT/HCPCS: 96361; 96365; 96375; 99285; G0378; 36415; 36600; 71045; 80048; 80053; 82803; 82948; 83605; 83735; 85025; 85610; 85730; 87040; 87081; 93005; 94640; J1650; J1815; J1885; J1940; J1956; J2270; J2405; J2920; J2930; J3475; J7030; Q0092

== ENCOUNTER 2020-08-15 13:39 | Emergency (ER) | payer OTHER ==
[~2020-08-15] VITALS: Ht 165.1 cm; Wt 140.6 kg
[~2020-08-15 13:39] MED LIST changes: -DIAZ2TAB6 PO; +ONDA4TAB PO
--- NOTE | 2020-08-15 13:47 | NUR ---
Ambulated to bed 1
[2020-08-15 13:55] VITALS: BP 132/86
--- NOTE | 2020-08-15 14:00 | NUR ---
PATIENT PRESENTS TO ED WITH C/O SWOLLEN AND NUMB HANDS AND FEET FOR ABOUT 3D. PT STATES THAT SHE IS UNABLE TO FEEL HER HANDS AT THIS TIME. PT HAS A HX OF COPD AND IS FEELING SOB AT THIS TIME ALSO. PT ON 2L NC. DENIES N/V/D; SKIN IS PINK/WARM/DRY; AAOX4 WITH EVEN AND STEADY GAIT; LUNGS CLEAR BL; HR EVEN AND REGULAR; PT DENIES ANY FEVER, CP, SOB, OR COUGH AT THIS TIME; PATIENT STATES PAIN OF 0/10 AT THIS TIME; VSS; PATIENT POSITIONED FOR COMFORT; HOB ELEVATED; BEDRAILS UP X2; BED DOWN. ER MD MADE AWARE OF PT STATUS.
--- NOTE | 2020-08-15 14:51 | NUR ---
X RAY AT BEDSIDE
[2020-08-15 15:44] LABS: BASOPHILS # (AUTO) 0.1 K/uL (0.00-0.22); BASOPHILS % (AUTO) 1.3 % (0.0-2.0); EOSINOPHILS # (AUTO) 0.1 K/uL (0-0.4); HEMATOCRIT 41.3 % (36-48); HEMOGLOBIN 13.8 g/dL (12.0-16.0); MEAN CORPUSCULAR HEMOGLOBIN 30 pg (27-31); MEAN CORPUSCULAR HGB CONC 34 g/dL (33-37); MEAN CORPUSCULAR VOLUME 88.1 fL (80-94); MONOCYTES # (AUTO) 0.6 K/uL (0.8-1.0); MONOCYTES % (AUTO) 8.8 % (1.7-9.3); NEUTROPHILS # (AUTO) 3.7 K/uL (1.8-7.7); NEUTROPHILS % (AUTO) 56.9 % (42.2-75.2); PLATELET COUNT (AUTO) 213 K/uL (140-450); RED BLOOD CELL COUNT(AUTO) 4.69 MIL/uL (4.20-5.40); RED CELL DISTRIBUTION WIDTH 14.8 % (11.6-13.7); WHITE BLOOD COUNT (AUTO) 6.6 K/uL (4.8-10.8)
[2020-08-15 16:28] LABS: ALBUMIN 3.7 g/dL (3.4-5.0); ANION GAP 15.2 (8-16); CARBON DIOXIDE 25.9 mmol/L (21-32); CREATININE 0.9 mg/dL (0.6-1.3); POTASSIUM 4.1 mmol/L (3.5-5.1); TOTAL BILIRUBIN 0.6 mg/dL (0.0-1.0)
[2020-08-15 17:00] VITALS: BP 132/86
--- NOTE | 2020-08-15 17:01 | NUR ---
Patient discharged with v/s stable. Written and verbal after care instructions given and explained. Patient alert, oriented and verbalized understanding of instructions. Wheel Chair Assisted to car. All questions addressed prior to discharge. ID band removed. Patient advised to follow up with PMD. Rx of LASIX given. Patient educated on indication of medication including possible reaction and side effects. Opportunity to ask questions provided and answered.
== END 2020-08-15 17:01 | disposition home or self-care (01) ==
LOC: MED 13:39
DX: J81.1 Chronic pulmonary edema (principal); M79.89 Other specified soft tissue disorders; J44.9 Chronic obstructive pulmonary disease, unspecified; E11.9 Type 2 diabetes mellitus without complications; E07.9 Disorder of thyroid, unspecified; I10 Essential (primary) hypertension; Z79.899 Other long term (current) drug therapy; Z88.0 Allergy status to penicillin
CPT/HCPCS: 36415; 71045; 80053; 83690; 83880; 84484; 85025; 93005; 99284

== ENCOUNTER 2021-01-02 16:30 | Emergency (ER) | payer OTHER ==
[~2021-01-02] VITALS: Ht 165.1 cm; Wt 136.1 kg
[~2021-01-02 16:30] MED LIST changes: +HYDR-4004 PO; +LISI-486 PO; -LISI10TA11 PO; -ORE25 PO
[2021-01-02 16:54] VITALS: BP 151/91
--- NOTE | 2021-01-02 16:54 | NUR ---
PT W/C ASSISTED TO BED 3.
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
--- NOTE | 2021-01-02 17:15 | NUR ---
ERMD at bedside evaluating pt.
[2021-01-02] MEDS ORDERED: KETOROLAC 30 MG/ML VIAL IM ONE (18:05)
[2021-01-02] MEDS ORDERED: BACITRACIN OINT 500 UNITS/GM PKT TP ONE (18:05)
[2021-01-02] MEDS ORDERED: HYDROcodone/APAP 5/325 MG 1 TAB TAB PO ONE (18:05)
[2021-01-02] MEDS ORDERED: NAPR-54 PO ×2 (18:09→18:15)
[2021-01-02] MEDS ORDERED: ACET-8386 PO ×2 (18:09→18:15)
[2021-01-02] MEDS ORDERED: BACI1PAC6 TP ×2 (18:09→18:15)
[2021-01-02 18:35] VITALS: BP 151/91
--- NOTE | 2021-01-02 18:35 | NUR ---
Patient discharged with v/s stable. Written and verbal after care instructions given and explained. Patient alert, oriented and verbalized understanding of instructions. Wheel Chair Assisted with to car. All questions addressed prior to discharge. ID band removed. Patient advised to follow up with PMD. Rx of Bacitracin, naprosyn, [place] given. Patient educated on indication of medication including possible reaction and side effects. Opportunity to ask questions provided and answered.
== END 2021-01-02 18:35 | disposition home or self-care (01) ==
LOC: MED 16:30
DX: T25.121A Burn of first degree of right foot, initial encounter (principal); T25.122A Burn of first degree of left foot, initial encounter; J44.9 Chronic obstructive pulmonary disease, unspecified; E11.9 Type 2 diabetes mellitus without complications; I10 Essential (primary) hypertension; Z88.0 Allergy status to penicillin; Z79.899 Other long term (current) drug therapy; X19.XXXA Contact with other heat and hot substances, initial encounter; Y93.89 Activity, other specified; Y92.89 Other specified places as the place of occurrence of the external cause; Y99.8 Other external cause status
CPT/HCPCS: 16000; 96372; 99283; J1885

== ENCOUNTER 2021-10-17 10:19 | Observation (INO) | payer OTHER, SELFPAY ==
[~2021-10-17] VITALS: Ht 165.1 cm; Wt 122.5 kg
[~2021-10-17 10:19] MED LIST changes: +ACET-8386 PO; +BACI1PAC6 TP; +NAPR-54 PO
[2021-10-17 10:39] VITALS: BP 131/93
--- NOTE | 2021-10-17 10:43 | NUR ---
PATIENT SENT TO LOBBY
[2021-10-17] MEDS ORDERED: ALBUTEROL SULFATE/IPRATROPIU 3 ML SOL IH ONE (11:05)
--- NOTE | 2021-10-17 11:23 | NUR ---
TOMASZ SWAB COLLECTED AND WALKED TO LAB.
--- NOTE | 2021-10-17 11:30 | NUR ---
HHN THERAPY AND RESPIRATORY DRUG GIVEN ORDERED ENCOURAGED PATIENT FOR DEEP BREATH AND COUGH DURING THERAPY
--- NOTE | 2021-10-17 11:30 | NUR ---
RT GIVING BREATHING TREATMENT AT THIS TIME
--- NOTE | 2021-10-17 11:38 | NUR ---
PT AMBULATED TO CHAIR B.
[2021-10-17 12:56] LABS: ALBUMIN 3.3 g/dL (3.4-5.0); ANION GAP 17.1 (8-16); CARBON DIOXIDE 27.8 mmol/L (21-32); CREATININE 1.1 mg/dL (0.6-1.3); POTASSIUM 3.9 mmol/L (3.5-5.1); TOTAL BILIRUBIN 1.5 mg/dL (0.0-1.0)
[2021-10-17] MEDS ORDERED: ONDANSETRON 4 MG/2 ML VIAL IVP ONE (13:00)
[2021-10-17] MEDS ORDERED: ALBUTEROL 0.083% 2.5 MG/3 ML NEBU INH ONE (13:00)
[2021-10-17] MEDS ORDERED: methylPREDNISolone SS 125 MG/2 ML VIAL IVP ONE (13:00)
[2021-10-17] MEDS ORDERED: AZITHROMYCIN 500 MG in DEXTROSE 5% 250 ML IV ONE (13:00)
--- NOTE | 2021-10-17 13:27 | NUR ---
PT MOVED TO ER BED 7
--- NOTE | 2021-10-17 13:32 | NUR ---
FOLLOW UP HHN THERAPY AND RESPIRATORY DRUG GIVEN ORDERED ENCOURAGE PTIENT FOR DEEP BREATHING AND COUGH
[2021-10-17 13:39] LABS: BASOPHILS % (AUTO) 0.2 % (0.0-2.0); HEMATOCRIT 41.6 % (36-48); HEMOGLOBIN 13.9 g/dL (12.0-16.0); LYMPHOCYTES # (AUTO) 1.4 K/uL (2.5-16.5); LYMPHOCYTES % (AUTO) 6.4 % (20.5-51.1); MEAN CORPUSCULAR HEMOGLOBIN 29 pg (27-31); MEAN CORPUSCULAR HGB CONC 33 g/dL (33-37); MEAN CORPUSCULAR VOLUME 87.8 fL (80-94); MONOCYTES # (AUTO) 0.9 K/uL (0.8-1.0); MONOCYTES % (AUTO) 4.3 % (1.7-9.3); NEUTROPHILS # (AUTO) 19.1 K/uL (1.8-7.7); NEUTROPHILS % (AUTO) 89.1 % (42.2-75.2); PLATELET COUNT (AUTO) 185 K/uL (140-450); RED BLOOD CELL COUNT(AUTO) 4.74 MIL/uL (4.20-5.40); RED CELL DISTRIBUTION WIDTH 15.6 % (11.6-13.7)
[2021-10-17 13:40] LABS: WHITE BLOOD COUNT (AUTO) 21.4 K/uL (4.8-10.8)
[2021-10-17] MEDS ORDERED: AZITHROMYCIN 500 MG INJ VIAL IV ONE (13:53)
[2021-10-17] MEDS ORDERED: POTASSIUM CHLORIDE 10 MEQ TABER PO PRN (14:05)
[2021-10-17] MEDS ORDERED: ACETAMINOPHEN 325 MG TAB PO PRN (14:05)
[2021-10-17] MEDS ORDERED: ZOLPIDEM 5 MG TAB PO PRN (14:05)
[2021-10-17] MEDS ORDERED: KCL 20 MEQ/WATER INJ PREMIX 200 ML IV PRN (14:05)
[2021-10-17] MEDS ORDERED: MAGNESIUM OXIDE 400 MG TAB PO PRN (14:05)
[2021-10-17] MEDS ORDERED: MAG SULF 2000 MG/WATER PREMIX 50 ML IV PRN (14:05)
[2021-10-17] MEDS ORDERED: HYDROcodone/APAP 5/325 MG 1 TAB TAB PO PRN (14:05)
--- NOTE | 2021-10-17 14:13 | NUR ---
RECEIVED PT IN [facility] AOX4. C/O HEADACHE 4/10 PAIN AT THIS TIME. IV INSERTED TO LEFT SHOULDER #22GUAGE. MEDS GIVEN PER ORDER. ON 2LNC SATURATION 93% PT NORMALLY ON HOME 02 AT 2LNC. PT PENDING ADMISSION FOR COPD. NO ACUTE DISTRESS NOTED. SAFETY MAINTAINED.
--- NOTE | 2021-10-17 18:31 | NUR ---
PT RESTING IN RNEY NO CHANGES NOTED. SAFETY MAINTAINED
--- NOTE | 2021-10-17 19:16 | NUR ---
REPORT RECEIVED FROM ANA VIEIRA FOR CONTINUITY OF PT CARE AT THIS TIME.
--- NOTE | 2021-10-17 19:40 | NUR ---
PT LAYING IN BED AWAKE EATING DINNER W HOB ELEVATED, BED LOCKED IN LOWEST POSITION W X2 SIDERAILS UP FOR PT SAFETY. PT REPORT SLIGHT DIFF BREATHING, WHEEZING AUSCULTATED, BUT REPORTS SHE FEELS LIKE HER BREATHING HAS BEEN IMPROVING PT O2 SAT 95% ON 3L NC. PT C/O UPPER BACK PAIN 04/02, + SOME NAUSEA BUT REPORTS OTHERWISE FELING BETTER.
--- NOTE | 2021-10-17 19:44 | NUR ---
PT AMBULATED TO BATHROOM W STEADY GAIT.
[2021-10-17] MEDS: ALBUTEROL SULFATE/IPRATROPIU 3 ML SOL IH SCH (19:53)
--- NOTE | 2021-10-17 19:53 | NUR ---
RT AT BEDSIDE FOR PT BREATHING TRT.
--- NOTE | 2021-10-17 20:06 | NUR ---
CALLED ANA BRIGGS TO GIVE REPORT. NO ANSWER AT THIS TIME. +
[2021-10-17] MEDS: ONDANSETRON 4 MG/2 ML VIAL IVP PRN (20:31)
[2021-10-17] MEDS: MORPHINE SULFATE 4 MG/ML SYR IVP PRN (20:31)
--- NOTE | 2021-10-17 20:57 | NUR ---
CALLED ANA BRIGGS TO GIVE REPORT. NO ANSWER AT THIS TIME.
--- NOTE | 2021-10-17 21:53 | NUR ---
CALLED ANA BRIGGS TO GIVE REPORT. NO ANSWER AT THIS TIME.
[2021-10-17 22:15] VITALS: BP 111/62
--- NOTE | 2021-10-17 22:16 | NUR ---
Patient will be admitted to care of DR. ORTIZ. Admited to TELEMETRY. Belongings list completed. Report to ANA BRIGGS.
[2021-10-17] MEDS: methylPREDNISolone SS 125 MG/2 ML VIAL IVP SCH (23:12)
[2021-10-18] MEDS: ALBUTEROL SULFATE/IPRATROPIU 3 ML SOL IH SCH ×4 (00:09→21:10)
[2021-10-18] MEDS: MORPHINE SULFATE 4 MG/ML SYR IVP PRN ×4 (01:08→19:00)
[2021-10-18] MEDS: ONDANSETRON 4 MG/2 ML VIAL IVP PRN ×4 (01:08→19:00)
[2021-10-18 04:00] VITALS: BP 109/54
[2021-10-18] MEDS: methylPREDNISolone SS 125 MG/2 ML VIAL IVP SCH ×3 (05:21→20:57)
[2021-10-18 06:54] LABS: BASOPHILS % (AUTO) 0.1 % (0.0-2.0); HEMATOCRIT 36.9 % (36-48); HEMOGLOBIN 12.3 g/dL (12.0-16.0); LYMPHOCYTES # (AUTO) 0.7 K/uL (2.5-16.5); LYMPHOCYTES % (AUTO) 3.2 % (20.5-51.1); MEAN CORPUSCULAR HEMOGLOBIN 29 pg (27-31); MEAN CORPUSCULAR HGB CONC 33 g/dL (33-37); MEAN CORPUSCULAR VOLUME 87.7 fL (80-94); MONOCYTES # (AUTO) 0.6 K/uL (0.8-1.0); MONOCYTES % (AUTO) 3.1 % (1.7-9.3); NEUTROPHILS # (AUTO) 19.2 K/uL (1.8-7.7); NEUTROPHILS % (AUTO) 93.6 % (42.2-75.2); PLATELET COUNT (AUTO) 177 K/uL (140-450); RED CELL DISTRIBUTION WIDTH 15.9 % (11.6-13.7); WHITE BLOOD COUNT (AUTO) 20.5 K/uL (4.8-10.8)
--- NOTE | 2021-10-18 06:55 | NUR ---
Patient is currently in bed resting no s/s of distress is noted. Patient requested pain medication at 0645 and received med at 0650. Patient is stable and all current needs have been met will differ further care to AM shift for continuity of care.
--- NOTE | 2021-10-18 07:30 | NUR ---
RECEIVED REPORT FROM SUPERVISOR CARTOGRAPHY NURSE FOR CONTINUITY OF CARE, POC DISCUSSED. PT IS STABLE IN BED WITH NO ACUTE S/S OF DISTRESS. PT ABLE TO MAKE NEEDS KNOWN. ALL SAFETY MEASURES IN PLACE, CALL LIGHT WITHIN REACH. WILL CONTINUE TO MONITOR.
[2021-10-18 07:47] LABS: ANION GAP 13.6 (8-16); CARBON DIOXIDE 27.8 mmol/L (21-32); CREATININE 0.9 mg/dL (0.6-1.3); POTASSIUM 3.4 mmol/L (3.5-5.1); TOTAL BILIRUBIN 0.7 mg/dL (0.0-1.0)
[2021-10-18 08:00] VITALS: BP 132/65
--- NOTE | 2021-10-18 08:59 | NUR ---
PATIENT HAS BEEN SCREENED AND CATEGORIZED HIGH NUTRITION RISK. PATIENT WILL BE SEEN WITHIN 1-2 DAYS OF ADMISSION. / THERESA STANTON RD
[2021-10-18] MEDS: ENOXAPARIN 40 MG/0.4 ML SYR SUBQ SCH (09:16)
[2021-10-18] MEDS: DOCUSATE SODIUM 100 MG GELCAP PO SCH (09:16)
[2021-10-18] MEDS: AZITHROMYCIN 500 MG in DEXTROSE 5% 250 ML IV SCH (09:31)
[2021-10-18 12:00] VITALS: BP 133/78
[2021-10-18 16:00] VITALS: BP 152/86
--- NOTE | 2021-10-18 19:11 | NUR ---
PAIN MED AND ZOFRAN ADMINISTERED AT 1900 FOR COMPLAINTS OF PAIN. PT ENDORSED TO PADDED BOX SEWER NURSE IN STABLE CONDITION.
--- NOTE | 2021-10-18 19:32 | NUR ---
Received patient from AM shift nurse. Patient is AA&Ox4 able to make needs known, denies chest pain or SOB. Chest rise is even and unlabored on 2L NC. Normal hear sounds present. Active bowel sounds x4 on auscultation. Denies pain with palpation and no distention is noted. Patient has a PIV to the forearm that is patent and flushes well. Patient has call light within reach, bed is locked in the lowest position with bed rails up. Will continue to monitor.
[2021-10-18 20:00] VITALS: BP 135/69
[2021-10-18] MEDS: BUDESONIDE 0.5 MG/2 ML NEBU INH SCH (21:10)
--- NOTE | 2021-10-18 23:00 | NUR ---
Patient reassigned report and endorsed to Terence PEREZ
[2021-10-19] MEDS: ALBUTEROL SULFATE/IPRATROPIU 3 ML SOL IH SCH ×2 (02:45→07:46)
[2021-10-19] MEDS: methylPREDNISolone SS 125 MG/2 ML VIAL IVP SCH ×2 (03:28→13:00)
[2021-10-19] MEDS: MORPHINE SULFATE 4 MG/ML SYR IVP PRN ×2 (03:28→10:25)
[2021-10-19] MEDS: ONDANSETRON 4 MG/2 ML VIAL IVP PRN ×2 (03:28→10:25)
[2021-10-19 04:00] VITALS: BP 123/70
[2021-10-19 07:21] LABS: BASOPHILS % (AUTO) 0.1 % (0.0-2.0); HEMOGLOBIN 12.2 g/dL (12.0-16.0); LYMPHOCYTES # (AUTO) 0.6 K/uL (2.5-16.5); LYMPHOCYTES % (AUTO) 3.4 % (20.5-51.1); MEAN CORPUSCULAR HEMOGLOBIN 30 pg (27-31); MEAN CORPUSCULAR HGB CONC 34 g/dL (33-37); MONOCYTES # (AUTO) 0.5 K/uL (0.8-1.0); MONOCYTES % (AUTO) 2.7 % (1.7-9.3); NEUTROPHILS # (AUTO) 15.8 K/uL (1.8-7.7); NEUTROPHILS % (AUTO) 93.8 % (42.2-75.2); PLATELET COUNT (AUTO) 213 K/uL (140-450); RED BLOOD CELL COUNT(AUTO) 4.14 MIL/uL (4.20-5.40); RED CELL DISTRIBUTION WIDTH 15.6 % (11.6-13.7); WHITE BLOOD COUNT (AUTO) 16.8 K/uL (4.8-10.8)
[2021-10-19 07:40] LABS: ANION GAP 13.6 (8-16); CARBON DIOXIDE 27.2 mmol/L (21-32); CREATININE 0.7 mg/dL (0.6-1.3); MAGNESIUM 2.4 mg/dL (1.8-2.4); POTASSIUM 3.8 mmol/L (3.5-5.1); TOTAL BILIRUBIN 0.4 mg/dL (0.0-1.0)
--- NOTE | 2021-10-19 07:40 | NUR ---
HANDOFF WITH JONATHAN CARDOZO RN. AZUCENA MARTINEZ RN
--- NOTE | 2021-10-19 07:45 | NUR ---
RECEIVED BEDSIDE REPORT FROM INFORMATION SYSTEMS SECURITY SPECIALIST NURSE FOR CONTINUITY OF CARE. PT IS AWAKE AND ALERT. A&OX4. ON 2L O2 NC. AMBULATORY INDEPENDENTLY. SKIN IS WARM, DRY, AND INTACT. IV IS IN THE LEFT FA 24 GAUGE SALINE LOCKED. PT IS STABLE. PLAN OF CARE DISCUSSED.
[2021-10-19] MEDS: BUDESONIDE 0.5 MG/2 ML NEBU INH SCH (07:46)
[2021-10-19 07:51] LABS: ALBUMIN 2.9 g/dL (3.4-5.0)
[2021-10-19 08:00] VITALS: BP 135/84
--- NOTE | 2021-10-19 10:00 | NUR ---
ROUNDED ON PT. SHE IS AWAKE AND TALKING APPROPRIATELY. ON RA WITH BREATHING UNLABORED. O2 SAT IS 92%. PT IS LAYING ON LEFT SIDE, WATCHING TV. WILL CONTINUE TO MONITOR.
[2021-10-19] MEDS: AZITHROMYCIN 500 MG in DEXTROSE 5% 250 ML IV SCH (10:21)
[2021-10-19] MEDS: DOCUSATE SODIUM 100 MG GELCAP PO SCH (10:21)
[2021-10-19] MEDS: ENOXAPARIN 40 MG/0.4 ML SYR SUBQ SCH (10:22)
--- NOTE | 2021-10-19 10:25 | NUR ---
PT WAS GIVEN MORPHINE FOR PAIN IVP. PT STATES PAIN IN THE BACK AT A SCALE OF 8/10. ACHING IN CHARACTERISTIC. PT WAS ALSO GIVEN ZOFRAN FOR NAUSEA. WILL MONITOR PT.
[2021-10-19 12:00] VITALS: BP 129/75
--- NOTE | 2021-10-19 12:13 | NUR ---
PT STATES SHE NO LONGER HAS PAIN IN THE BACK. SHE IS ANSWERING QUESTIONS APPROPRIATELY. NO DISTRESS NOTED AT THIS TIME. PT STABLE.
--- NOTE | 2021-10-19 14:43 | NUR ---
ASSISTED PATIENT TO THE RESTROOM. GAIT WAS STEADY AND STANDBY ASSISTANCE WAS NOT NEEDED. BREATHING IS UNLABORED ON RA. PT DENIES PAIN. WILL CONTINUE TO MONITOR.
[2021-10-19] MEDS ORDERED: BECL10.62 INH (15:06)
[2021-10-19] MEDS ORDERED: UMEC62.5 IH (15:06)
--- NOTE | 2021-10-19 16:01 | NUR ---
10/19/21 RD INITIAL ASSESSMENT COMPLETED PLEASE REFER TO NUTRITION ASSESSMENT UNDER CARE ACTIVITY FOR ESTIMATED NUTRITIONAL NEEDS. 1. CONTINUE CARDIAC DIET TOLERATED 2. RECOMMEND GLUCERNA BID IF PO INTAKE IS < 75% 3. RD TO FOLLOW-UP 3-5 DAYS, MODERATE RISK (DOWNGRADED D/T PT EATING WELL) THERESA ST[address]ON RD
[2021-10-19 16:33] VITALS: BP 135/84
--- NOTE | 2021-10-19 17:00 | NUR ---
PT WAS DISCHARGED FROM HOSPITAL. PT WAS AWAKE AND ALERT. ON RA WITH BREATHING UNLABORED. NO RESPIRATORY DISTRESS NOTED. SKIN IS WARM AND INTACT. PT DENIES ANY NAUSEA OR VOMITING. DISCHARGE INSTRUCTIONS PROVIDED AND PT VERBALIZED UNDERSTANDING. ID BAND REMOVED. IV REMOVED AND BLEEDING CONTROLLED. PT IS STABLE.
--- NOTE | 2021-10-24 12:56 | NUR ---
LATE ENTRY- ROCEPHIN IVPB DISCONTINUED 2215.
== END 2021-10-19 17:00 | disposition home or self-care (01) ==
LOC: MED 10:19 → UNDOADMIN 13:26 → MTU 13:26
PROVIDERS: ADMIT Hospitalist; ATTEND Hospitalist
DX: J44.1 Chronic obstructive pulmonary disease with (acute) exacerbation (principal); I10 Essential (primary) hypertension; E78.5 Hyperlipidemia, unspecified; F41.9 Anxiety disorder, unspecified; F32.9 Major depressive disorder, single episode, unspecified; J96.01 Acute respiratory failure with hypoxia; D72.829 Elevated white blood cell count, unspecified; R00.0 Tachycardia, unspecified; Z79.899 Other long term (current) drug therapy; Z99.81 Dependence on supplemental oxygen
CPT/HCPCS: 36415; 36600; 71045; 80053; 82803; 83605; 83735; 84484; 85025; 85379; 87040; 87081; 87426; 94640; 94760; 96365; 96366; 96367; 96372; 96375; 96376; 99285; G0378; J0456; J0696; J1650; J2270; J2405; J2930; J7060; J7613; J7626

== ENCOUNTER 2022-02-19 11:26 | Emergency (ER) | payer MEDICARE, OTHER ==
[~2022-02-19] VITALS: Ht 162.6 cm; Wt 117.1 kg
[~2022-02-19 11:26] MED LIST changes: -AZIT250T11 PO; -BACI1PAC6 TP; +BECL10.62 INH; -LURA40TA PO; +LURA40TA1 PO; +UMEC62.5 IH
[2022-02-19 11:41] VITALS: BP 172/99
--- NOTE | 2022-02-19 11:50 | NUR ---
BIB SELF C/O LOWER ABDOMINAL PAIN & LEFT MID ABDOMAL PAIN, LOWER BACK PAIN X 3 DAYS, C/O NAUSEA VOMITING X 5 DAYS AND C/O NO BOWEL MOVEMENT X 8 DAYS. PMH: COPD, HTN, THYROID, ARTHITIS, C SECTION
[2022-02-19 12:26] LABS: BASOPHILS # (AUTO) 0.1 K/uL (0.00-0.22); BASOPHILS % (AUTO) 1.2 % (0.0-2.0); EOSINOPHILS # (AUTO) 0.2 K/uL (0-0.4); HEMATOCRIT 43.6 % (36-48); HEMOGLOBIN 14.5 g/dL (12.0-16.0); LYMPHOCYTES # (AUTO) 2.4 K/uL (2.5-16.5); LYMPHOCYTES % (AUTO) 31.2 % (20.5-51.1); MEAN CORPUSCULAR HEMOGLOBIN 28 pg (27-31); MEAN CORPUSCULAR HGB CONC 33 g/dL (33-37); MEAN CORPUSCULAR VOLUME 83.9 fL (80-94); MONOCYTES # (AUTO) 0.7 K/uL (0.8-1.0); NEUTROPHILS # (AUTO) 4.3 K/uL (1.8-7.7); NEUTROPHILS % (AUTO) 56.6 % (42.2-75.2); PLATELET COUNT (AUTO) 230 K/uL (140-450); RED CELL DISTRIBUTION WIDTH 15.9 % (11.6-13.7); WHITE BLOOD COUNT (AUTO) 7.6 K/uL (4.8-10.8)
[2022-02-19 12:56] LABS: ALBUMIN 3.6 g/dL (3.4-5.0); ANION GAP 9.6 (8-16); CARBON DIOXIDE 28.3 mmol/L (21-32); CREATININE 0.7 mg/dL (0.6-1.3); POTASSIUM 3.9 mmol/L (3.5-5.1); TOTAL BILIRUBIN 0.4 mg/dL (0.0-1.0)
[2022-02-19] MEDS ORDERED: SODIUM PHOSPHATE 118 ML ENEM RC ONE (13:05)
[2022-02-19] MEDS ORDERED: KETOROLAC 30 MG/ML VIAL IM ONE (13:05)
[2022-02-19] MEDS ORDERED: BEN10 PO (13:10)
[2022-02-19] MEDS ORDERED: MAGN296S48 PO (13:10)
[2022-02-19 13:26] LABS: BILIRUBIN,URINE NEGATIVE (NEGATIVE); BLOOD, URINE NEGATIVE (NEGATIVE); COLOR,URINE YELLOW (YELLOW); LEUKOCYTE ESTERASE ,URINE NEGATIVE (NEGATIVE); NITRITE, URINE NEGATIVE (NEGATIVE); UGLUCOSE NEGATIVE (NEGATIVE)
[2022-02-19 13:31] LABS: APPEARANCE,URINE CLEAR (CLEAR)
[2022-02-19 15:01] VITALS: BP 121/92
--- NOTE | 2022-02-19 15:01 | NUR ---
Patient discharged with v/s stable. Written and verbal after care instructions given and explained. Patient alert, oriented and verbalized understanding of instructions. Ambulatory with steady gait. All questions addressed prior to discharge. ID band removed. Patient advised to follow up with PMD. Rx of CITROMA & BENTYL given. Patient educated on indication of medication including possible reaction and side effects. Opportunity to ask questions provided and answered.
== END 2022-02-19 15:01 | disposition home or self-care (01) ==
LOC: MED 11:26
DX: K59.00 Constipation, unspecified (principal); Z71.6 Tobacco abuse counseling; J44.9 Chronic obstructive pulmonary disease, unspecified; E11.9 Type 2 diabetes mellitus without complications; I10 Essential (primary) hypertension; Z86.39 Personal history of other endocrine, nutritional and metabolic disease; Z98.890 Other specified postprocedural states; Z79.899 Other long term (current) drug therapy; Z79.891 Long term (current) use of opiate analgesic; Z79.1 Long term (current) use of non-steroidal anti-inflammatories (NSAID); Z88.0 Allergy status to penicillin
CPT/HCPCS: 36415; 74176; 80053; 81003; 83690; 85025; 96372; 99284; J1885

== ENCOUNTER 2023-06-17 09:33 | Observation (INO) | payer MEDICARE, OTHER ==
[~2023-06-17] VITALS: Ht 167.6 cm; Wt 135.2 kg
[~2023-06-17 09:33] MED LIST changes: -ACET-8386 PO; +ACET-8905 PO; +BEN10 PO; +MAGN296S48 PO
[2023-06-17 09:35] VITALS: BP 166/81; PULSE 93; RESP 18; TEMP 99.5; O2SAT 100
[2023-06-17 10:16] LABS: BASOPHILS # (AUTO) 0.1 K/uL (0.00-0.22); BASOPHILS % (AUTO) 1.3 % (0.0-2.0); EOSINOPHILS # (AUTO) 0.2 K/uL (0-0.4); EOSINOPHILS % (AUTO) 2.3 % (0.0-4.0); HEMATOCRIT 45.2 % (36-48); HEMOGLOBIN 14.9 g/dL (12.0-16.0); LYMPHOCYTES # (AUTO) 2.1 K/uL (2.5-16.5); LYMPHOCYTES % (AUTO) 32.3 % (20.5-51.1); MEAN CORPUSCULAR HEMOGLOBIN 27 pg (27-31); MEAN CORPUSCULAR HGB CONC 33 g/dL (33-37); MEAN CORPUSCULAR VOLUME 81.5 fL (80-94); MONOCYTES # (AUTO) 0.6 K/uL (0.8-1.0); MONOCYTES % (AUTO) 9.3 % (1.7-9.3); NEUTROPHILS # (AUTO) 3.6 K/uL (1.8-7.7); NEUTROPHILS % (AUTO) 54.8 % (42.2-75.2); PLATELET COUNT (AUTO) 234 K/uL (140-450); RED BLOOD CELL COUNT(AUTO) 5.54 MIL/uL (4.20-5.40); RED CELL DISTRIBUTION WIDTH 16.2 % (11.6-13.7); WHITE BLOOD COUNT (AUTO) 6.6 K/uL (4.8-10.8)
[2023-06-17 10:42] LABS: ALANINE AMINOTRANSFERASE 32 U/L (12-78); ALBUMIN 3.6 g/dL (3.4-5.0); ALKALINE PHOSPHATASE 126 U/L (50-136); ANION GAP 10.6 (8-16); ASPARTATE AMINOTRANSFERASE 30 U/L (15-37); CHLORIDE 103 mmol/L (98-107); CREATININE 0.6 mg/dL (0.6-1.3); GFR ARICAN-AMERICAN 131 mL/min (>90); GFR NON ARICAN-AMERICAN 108 mL/min (>90); GLUCOSE 118 mg/dL (74-106); POTASSIUM 4.6 mmol/L (3.5-5.1); SODIUM SERUM 137 mmol/L (136-145); TOTAL BILIRUBIN 0.6 mg/dL (0.0-1.0); TOTAL PROTEIN, SERUM 7.4 g/dL (6.4-8.2); UREA NITROGEN, BLOOD 8 mg/dL (7-18)
[2023-06-17] MEDS ORDERED: KETOROLAC 30 MG/ML VIAL IVP ONE ×2 (10:55→18:00)
[2023-06-17] MEDS ORDERED: ONDANSETRON 4 MG/2 ML VIAL IVP ONE (10:55)
[2023-06-17] MEDS ORDERED: CYCLOBENZAPRINE 10 MG TAB PO ONE ×2 (10:55→17:00)
[2023-06-17 11:28] LABS: INR 0.9 (0.8-1.2); PROTHROMBIN TIME 9.4 secs (10.8-13.4)
[2023-06-17] MEDS ORDERED: ASPIRIN 325 MG TAB PO ONE (14:05)
[2023-06-17] MEDS ORDERED: MORPHINE SULFATE 4 MG/ML SYR IVP ONE (14:05)
[2023-06-17 14:59] LABS: APPEARANCE,URINE CLEAR (CLEAR); BILIRUBIN,URINE NEGATIVE (NEGATIVE); BLOOD, URINE NEGATIVE (NEGATIVE); COLOR,URINE YELLOW (YELLOW); LEUKOCYTE ESTERASE ,URINE NEGATIVE (NEGATIVE); NITRITE, URINE POSITIVE (NEGATIVE); PROTEIN,URINE NEGATIVE (NEGATIVE); UGLUCOSE NEGATIVE (NEGATIVE); UROBILINOGEN,URINE 0.2 EU/dL (0.2 - 1)
[2023-06-17 15:20] LABS: BACTERIA,URINE 3+ /HPF (None Seen); MUCUS,URINE 1+ /LPF (None Seen); RBC,URINE 0-5 /HPF (0-5); SQUAMOUS EPITHELIAL CELL,UR 4-10 (MOD) /LPF (0-3 (FEW)); TRICHOMONAS,URINE None Seen /HPF (None Seen); WBC,URINE 0-5 /HPF (0-5); YEAST,URINE None Seen /HPF (None Seen)
[2023-06-17] MEDS ORDERED: ONDANSETRON 4 MG/2 ML VIAL IVP PRN (16:55)
[2023-06-17] MEDS ORDERED: HYDROcodone/APAP 5/325 MG 1 TAB TAB PO PRN (16:55)
[2023-06-17] MEDS ORDERED: ACETAMINOPHEN 325 MG TAB PO PRN (16:55)
[2023-06-17] MEDS ORDERED: MORPHINE SULFATE 4 MG/ML SYR IVP PRN (16:55)
[2023-06-17] MEDS ORDERED: POTASSIUM CHLORIDE 10 MEQ TABER PO PRN (16:55)
[2023-06-17] MEDS ORDERED: MAGNESIUM OXIDE 400 MG TAB PO PRN (16:55)
[2023-06-17 20:20] VITALS: BP 113/64; PULSE 74; RESP 16; TEMP 98; O2SAT 95
[2023-06-18] MEDS ORDERED: DOCUSATE SODIUM 100 MG GELCAP PO SCH (09:00)
== END 2023-06-17 20:20 | disposition left against medical advice (07) ==
LOC: MED 09:33 → MTU 16:56
PROVIDERS: ADMIT Student in an Organized Health Care Education/Training Program; ATTEND Student in an Organized Health Care Education/Training Program
DX: S39.012A Strain of muscle, fascia and tendon of lower back, initial encounter (principal); R20.2 Paresthesia of skin; J96.11 Chronic respiratory failure with hypoxia; E66.9 Obesity, unspecified; I10 Essential (primary) hypertension; E78.5 Hyperlipidemia, unspecified; J44.9 Chronic obstructive pulmonary disease, unspecified; M25.559 Pain in unspecified hip; Z88.0 Allergy status to penicillin; Z79.899 Other long term (current) drug therapy
CPT/HCPCS: 36415; 70450; 71045; 72170; 80053; 81001; 82948; 84484; 85025; 85610; 85730; 86886; 86900; 86901; 87086; 96374; 96375; 96376; 99291; G0378; J1885; J2270; J2405